=== PATIENT | female | born 1970 | race Hispanic/Latino ===

== ENCOUNTER 2016-06-26 06:26 | Day surgery (SDC) | payer OTHER ==
[~2016-06-26 06:26] MED LIST: ANCEF/STERILE WATER 2 GM/20 ML 2 GM/20 ML SYRINGE IV NR; NACL 0.9% 1000 ML 1,000 ML IV SCH
[2016-06-26 07:17] LABS: Hematocrit 41.2 % (30.3-42.9); Mean Corpuscular HGB Conc 34 % (30-34); Mean Corpuscular Hemoglobin 33 pg (28-32); Mean Corpuscular Volume 96 fl (79-97); Platelet Count 184 K/mm3 (140-440); Red Cell Distribution Width 13.3 % (13.2-15.2); White Blood Count 7.5 K/mm3 (4.5-11.0)
[2016-06-26] MEDS ORDERED: NACL 0.9% 250ML 0 ML ONE (07:27)
[2016-06-26 07:32] LABS: INR 0.99 (0.87-1.13)
[2016-06-26 07:33] LABS: Partial Thromboplastin Time 32.3 Sec. (24.2-36.6)
[2016-06-26] MEDS ORDERED: NACL 0.9% 500 ML 500 ML IV SCH (08:00)
[2016-06-26] MEDS ORDERED: HEPARIN/NS 5000 UNIT/500ML(CATH LAB) 500 ML IR ONE (09:14)
[2016-06-26] MEDS ORDERED: ANCEF/STERILE WATER 2 GM/20 ML 2 GM/20 ML SYRINGE IV ONE (09:14)
[2016-06-26] MEDS: SUBLIMAZE ONE ×3 (10:03→10:16)
[2016-06-26] MEDS: VERSED ONE ×3 (10:04→10:16)
[2016-06-26] MEDS: XYLOCAINE 1%/ EPI 1:100,000 INFILTRATI ONE ×2 (10:04→10:14)
[2016-06-26] MEDS ORDERED: BENADRYL ONE (10:16)
--- NOTE | 2016-06-26 10:59 | Short Stay Summary ---
Short Stay Documentation Date of service: 06/26/16 Narrative H&P: presents for port removal - History Principal diagnosis: ovarian cancer H&P: obtained from office - Allergies and Medications Current Medications: Allergies tegaderm Allergy (Uncoded 06/26/16 06:51) Hives Home Medications Medication Instructions Recorded Confirmed Last Taken Type Estradiol [Estradiol] 1 mg PO DAILY 02/16/14 06/26/16 06/26/16 History Sertraline HCl [Sertraline HCl] 200 mg PO DAILY 02/16/14 06/26/16 06/25/16 History 200mg Active Medications Cefazolin Sodium (Ancef/Sterile Water 2 Gm/20 Ml) 2 gm in 20 mls @ 80 mls/hr IV PREOP NR PRN Reason: Protocol Stop: 06/26/16 23:59 Last Admin: 06/26/16 09:35 Dose: 20 mls Sodium Chloride (Nacl 0.9% 500 Ml) 500 mls @ 50 mls/hr IV DIRECT KATHRINE Last Admin: 06/26/16 07:47 Dose: 50 mls/hr - Physical exam General appearance: no acute distress Lungs: Normal air movement - Brief post op/procedure progress note Date of procedure: 06/26/16 Pre-op diagnosis: ovarian cancer Post-op diagnosis: same Procedure: port removal Anesthesia: local (w/ conscious sedation) Surgeon: MARE GÓMEZ Estimated blood loss: minimal Condition: stable - Hospital course Hospital course: tolerated procedure well ; no issues. - Disposition Condition at discharge: Stable Disposition: DISCHARGED TO HOME OR SELFCARE Short Stay Discharge Plan Activity: advance as tolerated Weight Bearing Status: Weight Bear as Tolerated Diet: regular Wound: other (keep dry for 5 days (do not get wet, do not take shower - sponge bath), then can get wet in shower and pat dry ; steristrips and glue will fall off in time) Follow up with: TRISTAN DEL ANGEL MD [Primary Care Provider] - 7 Days
--- NOTE | 2016-06-26 11:04 | Operative Report ---
Operative Report Operative Report: EXAM: Right internal jugular port removal under fluoroscopic guidance DATE: 06/26/16 SPLICING MACHINE OPERATOR: MARE GÓMEZ MD INDICATION: Ovarian cancer, no longer need for port. MEDICATIONS: Please see nursing report for full details. ANESTHESIA: conscious sedation CONTRAST: None PROCEDURE: Following an explanation of the risks, benefits, and alternatives; written informed consent was obtained. The patient was brought to the angiography suite and placed in supine position on the examination table. Area around the port was prepped and draped in a sterile fashion. The port site was then anesthetized with local anesthetic. 15 blade was used to make a 2.5 centimeter incision along the existing port healed incision. Curved hemostats were used to slowly separate the site and expose the port. As this was done, hemostasis was achieved with the use of compression. The port tubing was exposed and the tubing was clamped. The tubing was then freed and completely extracted. Pressure was held at the prior venotomy sites after tubing removal until hemostasis was achieved. The port was then removed intact. The area was then evaluated and washed with sterile saline. Hemostasis was achieved with manual compression. The site was then closed in 2 layers with interrupted 3-0 Vicryl sutures and a running 4-0 Vicryl subcuticular suture. Dermabond was applied. Steri-Strips were applied. 4X4 and paper dressing was then applied due to tegaderm allergy. The patient tolerated the procedure well. There were no immediate postprocedural complications. FINDINGS: Successful removal of a right internal jugular chest port. Die Baker radiograph demonstrates a intact port. Post procedural radiograph demonstrates successful port removal without residual tubing. IMPRESSION: Successful removal of a right internal jugular port under fluoroscopic guidance.
[2016-06-26 12:28] VITALS: BP 107/62
== END 2016-06-26 12:40 | disposition home or self-care (01) ==
LOC: OPU 06:26
PROVIDERS: ATTEND Radiology Diagnostic Radiology
DX: C56.1 Malignant neoplasm of right ovary (principal); F17.210 Nicotine dependence, cigarettes, uncomplicated; Z90.710 Acquired absence of both cervix and uterus; Z72.89 Other problems related to lifestyle; Z83.3 Family history of diabetes mellitus; Z80.9 Family history of malignant neoplasm, unspecified; Z82.49 Family history of ischemic heart disease and other diseases of the circulatory system
CPT/HCPCS: 36415; 36590; 85027; 85610; 85730; J0690; J1644; J2250; J3010; J7040; J1200; J7050